=== PATIENT | female | born 1950 | race Caucasian/White ===

== ENCOUNTER → 2017-03-27 | Outpatient (REF) | LOC: ZLAB.WCH 15:08 | DX: Z01.89 Encounter for other specified special examinations (principal) ==

== ENCOUNTER → 2017-05-10 | Outpatient (REF) | LOC: ZLAB.WCH 17:41 | DX: Z01.89 Encounter for other specified special examinations (principal) ==

== ENCOUNTER → 2017-09-12 | Outpatient (REF) | LOC: ZLAB.WCH 08:36 | DX: Z01.89 Encounter for other specified special examinations (principal) ==

== ENCOUNTER → 2017-12-10 | Outpatient (REF) | LOC: ZLAB.WCH 08:56 | DX: Z01.89 Encounter for other specified special examinations (principal) ==

== ENCOUNTER → 2018-03-29 | Outpatient (REF) | LOC: ZLAB.WCH 12:17 | DX: Z01.89 Encounter for other specified special examinations (principal) ==

== ENCOUNTER → 2018-07-30 | Outpatient (REF) | LOC: ZLAB.WCH 16:17 | DX: Z01.89 Encounter for other specified special examinations (principal) ==